=== PATIENT | male | born 2000 | race American Indian/Alaskan Native ===

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

== ENCOUNTER 2020-08-02 17:02 | Emergency (ER) | payer MEDICAID ==
[~2020-08-02] VITALS: Ht 175.3 cm; Wt 86.4 kg
[~2020-08-02 17:02] MED LIST changes: -MECL-111 PO; +MECL-159 PO
[2020-08-02 17:15] VITALS: BP 144/94
--- NOTE | 2020-08-02 17:27 | NUR ---
patient seen and assessed by provider.
== END 2020-08-02 17:33 | disposition home or self-care (01) ==
LOC: ER 17:03
DX: Z00.00 Encounter for general adult medical examination without abnormal findings (principal); F12.90 Cannabis use, unspecified, uncomplicated; F15.90 Other stimulant use, unspecified, uncomplicated; F11.90 Opioid use, unspecified, uncomplicated; Z87.81 Personal history of (healed) traumatic fracture; Z79.899 Other long term (current) drug therapy
CPT/HCPCS: 99281

== ENCOUNTER 2020-11-21 02:29 | Emergency (ER) | payer MEDICAID ==
[~2020-11-21] VITALS: Ht 177.8 cm; Wt 86.0 kg
[2020-11-21 02:33] VITALS: BP 120/72
== END 2020-11-21 07:25 | disposition left against medical advice (07) ==
LOC: ER 02:30
DX: M79.604 Pain in right leg (principal); Z53.21 Procedure and treatment not carried out due to patient leaving prior to being seen by health care provider

== ENCOUNTER 2022-05-28 18:23 | Emergency (ER) | payer MEDICAID ==
[~2022-05-28] VITALS: Ht 177.8 cm; Wt 93.6 kg
[2022-05-28 18:27] VITALS: BP 135/82
[2022-05-28] MEDS ORDERED: SULF1TAB49 PO (22:22)
[2022-05-28] MEDS ORDERED: sulfamethoxazole/trimethoprim DS (800/160mg) tablet PO ONE (22:25)
== END 2022-05-28 22:53 | disposition home or self-care (01) ==
LOC: ER 18:23
DX: K04.7 Periapical abscess without sinus (principal); F12.10 Cannabis abuse, uncomplicated; F15.10 Other stimulant abuse, uncomplicated; F11.10 Opioid abuse, uncomplicated; F17.200 Nicotine dependence, unspecified, uncomplicated; Z88.8 Allergy status to other drugs, medicaments and biological substances; Z87.81 Personal history of (healed) traumatic fracture; Z79.899 Other long term (current) drug therapy
CPT/HCPCS: 99283